=== PATIENT | male | born 1945 | race African-American/Black ===

== ENCOUNTER 2022-05-13 23:44 | Emergency (ER) | payer MEDICARE, MEDICAID ==
[~2022-05-13] VITALS: Ht 177.8 cm; Wt 80.0 kg
[2022-05-14 00:05] VITALS: BP 185/80
== END 2022-05-14 02:00 | disposition left against medical advice (07) ==
LOC: ER 23:44
DX: Z53.21 Procedure and treatment not carried out due to patient leaving prior to being seen by health care provider (principal)

== ENCOUNTER 2022-11-12 02:40 | Emergency (ER) | payer MEDICAID, MEDICARE, OTHER ==
[~2022-11-12] VITALS: Ht 182.9 cm; Wt 60.4 kg
[2022-11-12 02:50] VITALS: BP 142/74
[2022-11-12] MEDS ORDERED: ACETAMINOPHEN 325MG TABLET PO NR (05:01)
[2022-11-12 05:35] LABS: BASOPHILS % 0.5 % (0.0-2.0); EOSINOPHILS % 1.6 % (0.0-5.0); HEMATOCRIT. 42.4 % (42.0-52.0); HEMOGLOBIN. 14.1 g/dL (14.0-18.0); LYMPHOCYTES % 15.3 % (20.0-50.0); MEAN CORPUSCULAR HEMOGLOBIN 30.4 pg (28.0-32.0); MEAN CORPUSCULAR VOLUME 91.1 fL (80.0-94.0); MEAN PLATELET VOLUME 8.1 fl (7.4-10.4); MONOCYTES % 6.6 % (2.0-8.0); PLATELET 303 x1000/uL (130-400); RED BLOOD CELL COUNT 4.65 mill/uL (4.7-6.1); RED CELL DISTRIBUTION WIDTH 14.3 % (11.6-14.6)
[2022-11-12 06:06] LABS: CHLORIDE 106 mEq/L (98-107)
[2022-11-12 06:14] LABS: ETHANOL BLOOD < 10 mg/dL
== END 2022-11-12 13:12 ==
LOC: ER 02:40
DX: R53.81 Other malaise (principal); R05.9 Cough, unspecified
CPT/HCPCS: 36415; 71045; 80053; 80320; 83880; 85025; 99284; G0480